=== PATIENT | female | born 1995 | race Caucasian/White ===

== ENCOUNTER 2020-06-12 00:34 | Emergency (ER) | payer BC ==
[~2020-06-12] VITALS: Ht 172.7 cm; Wt 88.6 kg
[2020-06-12] MEDS ORDERED: CEPH-264 PO (01:30)
--- NOTE | 2020-06-12 01:30 | PHYS DOC ---
Past Medical History Past Medical History: Depression Past Surgical History: Tonsillectomy, Other Additional Past Surgical Histo: LEFT KNEE TENDON REPLACEMENT Smoking Status: Never Smoker Alcohol Use: Occasionally General Adult EDM: Chief Complaint: HAND PROBLEM HPI: HPI: Patient is a 25 year old female presents for evaluation of bilateral hand pain. Prior to arrival patient admits to punching a tree. Patient has swelling over the MCP bilateral. There is some abrasions over the MCPs bilateral there does not appear to be any deformities. Review of Systems: Review of Systems: Constitutional: Denies fever or chills. [] Eyes: Denies change in visual acuity. [] HENT: Denies nasal congestion or sore throat. [] Respiratory: Denies cough or shortness of breath. [] Cardiovascular: Denies chest pain or edema. [] GI: Denies abdominal pain, nausea, vomiting, bloody stools or diarrhea. [] : Denies dysuria. [] Musculoskeletal: Denies back pain or joint pain. [positive hand pain] Integument: Denies rash. [positive hand abrasions] Neurologic: Denies headache, focal weakness or sensory changes. [] Endocrine: Denies polyuria or polydipsia. [] Lymphatic: Denies swollen glands. [] Psychiatric: Denies depression or anxiety. [] Heart Score: Risk Factors: Risk Factors: DM, Current or recent (<one month) smoker, HTN, HLP, family history of CAD, obesity. Risk Scores: Score 0 - 3: 2.5% MACE over next 6 weeks - Discharge Home Score 4 - 6: 20.3% MACE over next 6 weeks - Admit for Clinical Observation Score 7 - 10: 72.7% MACE over next 6 weeks - Early Invasive Strategies Physical Exam: PE: Constitutional: Well developed, well nourished, no acute distress, non-toxic appearance. [] HENT: Normocephalic, atraumatic, bilateral external ears normal, oropharynx moist, no oral exudates, nose normal. [] Eyes: PERRLA, EOMI, conjunctiva normal, no discharge. [] Neck: Normal range of motion, no tenderness, supple, no stridor. [] Cardiovascular:Heart rate regular rhythm, no murmur [] Lungs & Thorax: Bilateral breath sounds clear to auscultation [] Abdomen: Bowel sounds normal, soft, no tenderness, no masses, no pulsatile masses. [] Skin: Warm, dry, no erythema, no rash. [] Back: No tenderness, no CVA tenderness. [] Extremities: No tenderness, no cyanosis, no clubbing, ROM intact, no edema. [] Neurologic: Alert and oriented X 3, normal motor function, normal sensory function, no focal deficits noted. [] Psychologic: Affect normal, judgement normal, mood normal. [] Current Patient Data: Labs: Laboratory Tests Test 06/12/20 00:56 POC Urine HCG, Qualitative Hcg negative (Negative) Vital Signs: Vital Signs Date Time Temp Pulse Resp B/P (MAP) Pulse Ox O2 Delivery O2 Flow Rate FiO2 06/12/20 00:34 98.8 102 20 139/94 (109) 97 Room Air 98.8 EKG: EKG: [] Radiology/Procedures: Radiology/Procedures: [] Impression: wet read xray negative for acute fractures Course & Med Decision Making: Course & Med Decision Making Pertinent Labs and Imaging studies reviewed. (See chart for details) [] Dragon Disclaimer: Dragon Disclaimer: This electronic medical record was generated, in whole or in part, using a voice recognition dictation system. Departure Departure Impression: Primary Impression: Bilateral hand pain Additional Impression: Hand abrasion Disposition: HOME, SELF-CARE Condition: STABLE Patient Instructions: Abrasions, Hand Contusion Scripts Cephalexin (KEFLEX) 500 Mg Capsule 500 MG PO QID for 10 Days, #40 CAP Prov: GERTRUDE FERREIRA DO 06/12/20 Justicifation of Admission Dx: Justifications for Admission: Justification of Admission Dx: N/A GERTRUDE FERREIRA DO Jun 12, 2020 01:30
[2020-06-12 02:05] VITALS: BP 138/89
--- NOTE | 2020-06-12 03:40 | RAD ---
Bilateral HAND, VIEWS 3 Indication: Reason: pain punching a tree / Findings: Right: There is no acute fracture or dislocation. Bony articulations are normal. There is no bony erosion. Mineralization is normal. There is moderate dorsal soft tissue swelling overlying the distal metacarpals. No radiopaque foreign body is identified. Left: There is no acute fracture or dislocation. Bony articulations are normal. There is no bony erosion. Mineralization is normal. There is no radiographically apparent soft tissue swelling or radiopaque foreign body. IMPRESSION: No acute fracture. Electronically signed by: Marino Louis MD (06/12/2020 3:38 AM) [facility]
== END 2020-06-12 02:12 | disposition home or self-care (01) ==
LOC: ER 00:34
DX: S60.512A Abrasion of left hand, initial encounter (principal); S60.511A Abrasion of right hand, initial encounter; R60.0 Localized edema; F32.9 Major depressive disorder, single episode, unspecified; Z90.89 Acquired absence of other organs; Z98.890 Other specified postprocedural states; Y29.XXXA Contact with blunt object, undetermined intent, initial encounter; Y93.89 Activity, other specified; Y92.89 Other specified places as the place of occurrence of the external cause; Y99.8 Other external cause status
CPT/HCPCS: 73130; 81025; 99284